=== PATIENT | female | born 1950 | race Caucasian/White ===

== ENCOUNTER 2017-07-23 07:36 | Emergency (ER) | payer OTHER ==
[~2017-07-23] VITALS: Ht 175.3 cm; Wt 124.7 kg
[~2017-07-23 07:36] MED LIST: AGGRENOX PO; ALP5 PO; ASP325 PO; ASP81 PO; AZE137NAPT NS; CLOP75TA43 PO; DOXY-179 PO; ENA25 PO; LEVO75TA73 PO; LIND60LO5 TP; LORA-1254 PO; METO25TA91 PO; MOMR; SIM10 PO; SPIR50TA31 PO; TRAM-420 PO; VALA100059 PO; [UNRECOGNIZED DRUG - CODE] TP
--- NOTE | 2017-07-23 07:54 | ER Report ---
History and Physical Time Seen By MD: 07:37 HPI/ROS CC: Unable to void HPI: 66-year-old female with past medical history of stroke, hypothyroid, hypertension, hypercholesterolemia. Comes to the emergency department with inability to void this morning. She states that there is a funny whooshing noise in her bladder. It is hard for her to describe exactly what the noise is. His been ongoing for a months. She's had at least 2-[address] of the abdomen with no acute findings. She is without pain. No nausea vomiting, diaphoresis, shortness of breath, back pain, diarrhea. She has not seen a urologist. ROS: 12 point review of systems essentially negative other than what's mentioned in history of present illness. NURSES AND OLD MEDICAL RECORDS: Reviewed PMH: Reviewed SURGICAL HX: Reviewed FAMILY HX: Noncontributory SOCIAL HX: She was at home she is she denies illicit drug smoking or alcohol. VITAL SIGNS: Reviewed CONSTITUTIONAL: 66-year-old female in no distress. PHYSICAL EXAM: HEENT: Pupils equal round reactive to light and accommodate, Lips dry mucous membranes moist gums nonbleeding uvula midline and rises equally with phonation. NECK: Neck supple, thyroid not appreciated. Trachea midline and rises equally with phonation. CARDIAC: S1-S2 regular rate rhythm no murmurs rubs or gallops. LUNGS: Lungs clear bilaterally posteriorly in all wang. Good air movement. ABDOMEN: Abdomen soft, nontender, nondistended, I did not appreciate a distended bladder in the suprapubic area, bowel sounds active in all 4 quadrants. MUSCULOSKELETAL: Strength 5 out of 5 x 4 extremities, no deformities noted. NEUROLOGIC: Patient alert and oriented by 3 Allergies: Coded Allergies: Iodine and Iodide Containing Produc (Verified Allergy, Mild, 07/23/17) Penicillins (Verified Allergy, Mild, 07/23/17) Shellfish (Verified Allergy, Mild, 07/23/17) Sulfa (Sulfonamide Antibiotics) (Verified Allergy, Mild, 07/23/17) cephalexin (Verified Allergy, Mild, 07/23/17) strawberry (Verified Allergy, Mild, 07/23/17) Soap (Verified Allergy, Unknown, 07/23/17) benzoin (Verified Allergy, Unknown, 07/23/17) povidone-iodine (Verified Allergy, Unknown, 07/23/17) Home Meds Reported Medications Levothyroxine Sodium (LEVOTHYROXINE SODIUM) 75 Mcg Tablet, 75 MCG PO QDAY, TAB 01/04/16 Clopidogrel Bisulfate (PLAVIX) 75 Mg Tablet, 1 TAB PO QHS TAKE ONE TABLET BY MOUTH EVERY DAY 05/29/13 Spironolactone (Spironolactone) 50 Mg Tablet, 100 MG PO DAILY, 0 Refills 11/16/10 Metoprolol Succinate (Toprol Xl) 25 Mg Tab.sr.24h, 25 MG PO BID, 0 Refills 11/16/10 Simvastatin (Zocor) 10 Mg Tab, 10 MG PO QHS, 0 Refills 11/16/10 Discontinued Scripts Valacyclovir Hcl (VALACYCLOVIR) 1,000 Mg Tablet, 1000 MG PO Q8H, #21 TAB 0 Refills Prov:JUSTYNA ARRIAGA MD 01/07/16 Tramadol Hcl (TRAMADOL HCL) 50 Mg Tablet, 1 TAB PO Q6H Y for PAIN, #30 MG TAKE ONE TO TWO TABLETS BY MOUTH EVERY FOUR TO SIX HOURS NEEDED Prov:CARMEN ROMEO DO 01/04/16 Hx Smoking: No Smoking Status: Never Smoker Exposure to Second Hand Smoke?: No Hx Substance Use Disorder: No Hx Alcohol Use: Yes (OCC) Constitutional Vital Sign - Last 24 Hours 07/23/17 07/23/17 07/23/17 07/23/17 07:40 07:41 07:42 07:46 Temp 97.9 Pulse 91 91 84 Resp 16 B/P (MAP) 143/70 (94) 143/70 Pulse Ox 88 90 94 O2 Delivery Room Air 07/23/17 07/23/17 07/23/17 07/23/17 07:51 07:56 08:00 08:01 Pulse 79 81 82 B/P (MAP) 143/75 (97) Pulse Ox 94 93 94 07/23/17 07/23/17 07/23/17 08:06 08:11 08:16 Pulse 84 77 Pulse Ox 92 91 88 Intake and Output 07/23/17 07/23/17 07/24/17 15:01 23:01 07:01 Output Total 100 ml Balance -100 ml Medical Decision Making Data Points Laboratory Hematology Test 07/23/17 08:13 Urine Color Yellow Urine Clarity Clear Urine pH 5.0 pH (4.8-9.5) Urine Specific [place] 1.015 Urine Protein Negative mg/dL (NEGATIVE) Urine Glucose (UA) Negative mg/dL (NEGATIVE) Urine Ketones Negative mg/dL (NEGATIVE) Urine Blood Negative (NEGATIVE) Urine Nitrite Negative (NEGATIVE) Urine Bilirubin Negative (NEGATIVE) Urine Urobilinogen Negative mg/dL (0.2-1.9) Urine Leukocyte Esterase Negative (NEGATIVE) Urine RBC 1 /HPF (0-2/HPF) Urine WBC None /HPF (0-5/HPF) Urine Squamous Epithelial Cells Few /LPF (NONE-FEW) Urine Transitional Epithelial Cells Few /LPF (NONE-FEW) Urine Bacteria Negative /HPF (NONE-FEW) Urine Mucus Few /HPF (NONE-FEW) Chemistry Test 07/23/17 08:13 Urine Color Yellow Urine Clarity Clear Urine pH 5.0 pH (4.8-9.5) Urine Specific [place] 1.015 Urine Protein Negative mg/dL (NEGATIVE) Urine Glucose (UA) Negative mg/dL (NEGATIVE) Urine Ketones Negative mg/dL (NEGATIVE) Urine Blood Negative (NEGATIVE) Urine Nitrite Negative (NEGATIVE) Urine Bilirubin Negative (NEGATIVE) Urine Urobilinogen Negative mg/dL (0.2-1.9) Urine Leukocyte Esterase Negative (NEGATIVE) Urine RBC 1 /HPF (0-2/HPF) Urine WBC None /HPF (0-5/HPF) Urine Squamous Epithelial Cells Few /LPF (NONE-FEW) Urine Transitional Epithelial Cells Few /LPF (NONE-FEW) Urine Bacteria Negative /HPF (NONE-FEW) Urine Mucus Few /HPF (NONE-FEW) Urinalysis Test 07/23/17 08:13 Urine Color Yellow Urine Clarity Clear Urine pH 5.0 pH (4.8-9.5) Urine Specific [place] 1.015 Urine Protein Negative mg/dL (NEGATIVE) Urine Glucose (UA) Negative mg/dL (NEGATIVE) Urine Ketones Negative mg/dL (NEGATIVE) Urine Blood Negative (NEGATIVE) Urine Nitrite Negative (NEGATIVE) Urine Bilirubin Negative (NEGATIVE) Urine Urobilinogen Negative mg/dL (0.2-1.9) Urine Leukocyte Esterase Negative (NEGATIVE) Urine RBC 1 /HPF (0-2/HPF) Urine WBC None /HPF (0-5/HPF) Urine Squamous Epithelial Cells Few /LPF (NONE-FEW) Urine Transitional Epithelial Cells Few /LPF (NONE-FEW) Urine Bacteria Negative /HPF (NONE-FEW) Urine Mucus Few /HPF (NONE-FEW) ED Course/Re-evaluation ED Course Urinalysis is within normal limits. No infection. Patient will be discharged to home follow up with Dr. Garcia urology. Bladder scan was performed. At best we can get 27 mL. Patient has a pannus. Patient will plan and in agreement. Re-evaluation Medical decision making includes but not excluded to UTI, sphincter dysfunction Decision to Disposition Date: Jul 23, 2017 Decision to Disposition Time: 08:38 Depart Departure Latest Vital Signs Vital Signs Date Time Temp Pulse Resp B/P (MAP) Pulse Ox O2 Delivery O2 Flow Rate FiO2 07/23/17 08:16 77 88 07/23/17 08:00 143/75 (97) 07/23/17 07:42 97.9 16 Room Air Impression: Primary Impression: Urinary retention Condition: Condition Unchanged Disposition: HOME OR SELF-CARE Referrals: CHRISTINA CIFUENTES DO (PCP) IRVIN GARCIA MD 1 Day Call [facility] for an appointment. Patient Instructions: Acute Urinary Retention in Women (ED) Additional Instructions: Follow-up with Dr. Garcia. U do not have a urinary tract infection. I and the staff wanted to thank you for allowing us to take care of your needs today in the emergency department at [facility]. We have tried to answer all of your questions and concerns. Please feel free to return to the emergency department for any further concerns or unanswered questions. MONSE OLMEDO MD Jul 23, 2017 07:54
[2017-07-23 08:00] VITALS: BP 143/75
== END 2017-07-23 08:45 | disposition home or self-care (01) ==
LOC: ER 07:41
DX: R33.9 Retention of urine, unspecified (principal)
CPT/HCPCS: 81001; 99283; A4353

== ENCOUNTER → 2018-02-14 | Outpatient (CLI) | payer OTHER ==
--- NOTE | 2018-02-14 08:49 | RADIOLOGY IMAGING REPORT ---
FACILITY: [facility] PATIENT NAME: Lolis Summers : 1950 MR: [id number] V: [id number] EXAM DATE: ORDERING PHYSICIAN: CHRISTINA CIFUENTES TECHNOLOGIST: Location: [facility] Patient: Lolis Summers : 1950 Visit/Account:[id number] Date of Sevice: 02/14/2018 Exam type: HIP LEFT History: Left hip pain x1 month, no known injury Comparison: None. Findings: Two views the left hip reveal no evidence of acute fracture or dislocation. No destructive bone lesi ons are seen. Incidentally noted are moderate degenerative changes lower lumbar spine. IMPRESSION: 1. No acute osteoarticular abnormality the left hip seen Moderate degenerative changes the lower lumbar spine Report Dictated By: Danni Tsai MD at 02/14/2018 8:43 AM Report E-Signed By: Danni Tsai MD at 02/14/2018 8:44 AM WSN:[id number]
== END ==
LOC: RAD 07:54
PROVIDERS: ATTEND Family Medicine
DX: M47.896 Other spondylosis, lumbar region (principal)